=== PATIENT | female | born 1995 ===

== ENCOUNTER 2022-01-25 20:13 | Emergency (ER) | payer OTHER ==
[~2022-01-25] VITALS: Ht 170.2 cm; Wt 127.0 kg
== END 2022-01-25 22:06 | disposition home or self-care (01) ==
LOC: ER 20:13
DX: J20.9 Acute bronchitis, unspecified (principal)
CPT/HCPCS: 99282

== ENCOUNTER → 2022-03-28 | Outpatient (CLI) | payer OTHER ==
[2022-03-29 08:10] LABS: HIV AB/P24 AG SCREEN Non Reactive (Non Reactive)
[2022-03-29 09:10] LABS: HBSAG SCREEN Negative (Negative); HCV ANTIBODY <0.1 (0.0-0.9)
== END | disposition home or self-care (01) ==
LOC: LAB SHORT 16:45
PROVIDERS: Chiropractor
DX: Z20.9 Contact with and (suspected) exposure to unspecified communicable disease (principal)
CPT/HCPCS: 84460; 86317; 86803; 87340; 87389

== ENCOUNTER → 2022-09-07 | Outpatient (CLI) | payer OTHER ==
[2022-09-07 14:54] LABS: Albumin, Blood 3.4 g/dL (3.4-5.0); Albumin/Globulin Ratio 0.7 (0.8-1.8); Bilirubin, Total 0.4 mg/dL (0.1-1.0); Bun/Creatinine Ratio 12.7 (12.0-20.0); Creatinine, Blood 0.79 mg/dL (0.40-1.00); Globulin, Blood 4.6 g/dL (2.2-4.0); Potassium, Blood 3.5 mmol/L (3.5-5.5); Thyroid Stimulating Hormone 3.074 uIU/mL (0.360-4.800)
== END ==
LOC: LAB 14:28 → LAB SHORT 14:28
PROVIDERS: Physician Assistant
DX: Z00.00 Encounter for general adult medical examination without abnormal findings (principal)
CPT/HCPCS: 80053; 83036; 84443